=== PATIENT | male | born 1985 | race Caucasian/White ===

== ENCOUNTER 2018-06-04 14:45 | Emergency (ER) | payer SELFPAY ==
[2018-06-04 15:39] LABS: ABS Basophils 0 10^3/ul (0-0.2); ABS Eosinophils 0.4 10^3/ul (0-0.6); ABS Lymphocytes 1.6 10^3/ul (1.0-4.8); ABS Monocytes 0.4 10^3/ul (0-0.8); ABS Neutrophils 3.2 10^3/ul (1.5-7.7); ABS Nucleated RBC 0 10^3/ul; Hematocrit 42 % (42-52); Hemoglobin 15.1 g/dl (14.0-18.0); Lymphocyte % 27.9 % (25-47); Mean Corpuscular HGB Conc 36 g/dl (31-36); Mean Corpuscular Hemoglobin 32 pg (27-31); Mean Corpuscular Volume 91 fL (80-94); Mean Platelet Volume 7.6 um3 (7.4-10.4); Nucleated Red Blood Cells % 0.2; Platelet Count 251 10^3/ul (150-450); Red Blood Count 4.68 10^6/ul (4.00-5.40); Red Cell Distribution Width 13 % (10.5-15); White Blood Count 5.6 10^3/ul (3.5-10.8)
--- NOTE | 2018-06-04 15:46 | RAD ---
INDICATION: Shortness of breath and chest pain. COMPARISON: Comparison is made with a prior chest x-ray study from May 25, 2011. TECHNIQUE: Dual-energy PA and lateral views of the chest were obtained. FINDINGS: The heart is within normal limits in size. Mediastinal and hilar contours appear within normal limits. The lungs are underinflated and clear. No pleural effusion is seen. IMPRESSION: NO EVIDENCE FOR ACTIVE CARDIOPULMONARY DISEASE.
[2018-06-04 15:59] LABS: EGFR Non-African American 74.4 (>60)
[2018-06-04 18:01] VITALS: BP 144/77
--- NOTE | 2018-06-04 18:02 | ED ---
HPI Chest Pain - HPI Summary HPI Summary: This is scribe Alonzo Gonzalez documenting for attending Isela Gutierrez M.D. Patient is a 33 y/o M w/ c/o chest discomfort onset today around noon. His business dean was present in the room. He states he was eating lunch and experienced a general stomach ache. Patient felt sweaty, dizzy, SOB. He went to his business dean and they came to hospital. 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 However, he states he was sweating throughout the day and had no fluids today. This is first episode of present Sx. He describes chest discomfort as feeling "congested" and denies pain. He reports Sx comes in "waves" and he denies Sx presently. However, he also reports some dizziness still. VELOZ is denied. Chest discomfort does not radiate. On triage, nothing is noted to aggravate/alleviate Sx. Patient smokes 1/2 a pack a day. He denies pain while breathing. Temperature in room was 97.7 F. 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 He reports Lyme disease, treated. Patient denies everyday medications, allergies. He reports daily alcohol usage, denies substance use. Father had prostate and colon cancer, denies FMHx of cardiac disease. I, Dr. Gutierrez, personally performed the services described in this documentation as scribed in my presence and it is both accurate and complete. - History of Current Complaint Chief Complaint: EDShortnessOfBreath Time Seen by Provider: 06/04/18 15:39 Hx Obtained From: Patient Onset/Duration: Started Hours Ago - onset today at noon, Resolved - reports chest discomfort not present in the room, but notes some dizziness still present. Timing: Intermittent - intermittent episodes lasting minutes Initial Severity: Moderate Current Severity: None Pain Intensity: 0 Pain Scale Used: 0-10 Numeric - 0/10 Chest Pain Location: Mid Sternal Chest Pain Radiates: No Character: Tightness - described as chest feeling, "congested" Aggravating Factor(s): Nothing Alleviating Factor(s): Nothing Associated Signs and Symptoms: Positive: Dizziness, Shortness of Breath, Diaphoresis, Other: - chest discomfort described as chest feeling "congested" - Risk Factors Pulmonary Embolism Risk Factors: Malignancy - Allergy/Home Medications Allergies/Adverse Reactions: Allergies Allergy/AdvReac Type Severity Reaction Status Date / Time No Known Allergies Allergy Verified 06/04/18 14:51 PMH/Surg Hx/FS Hx/Imm Hx Previously Healthy: No Sensory History: Denies: Hx Legally Blind, Hx Deafness Opthamlomology History: Denies: Hx Legally Blind EENT History: Denies: Hx Deafness - Cancer History Cancer Type, Location and Year: testicular Hx Chemotherapy: No - radiation - Surgical History Surgery Procedure, Year, and Place: orchiectomy-08/2007 Infectious Disease History: No Infectious Disease History: Reports: History Other Infectious Disease - Lyme disease Denies: Traveled Outside the [place] in Last 30 Days - Family History Known Family History: Positive: Other - father had prostate and colon cancer Negative: Cardiac Disease - Social History Occupation: Employed Full-time Alcohol Use: Daily Alcohol Amount: several beers a day Substance Use Type: Reports: None Smoking Status (MU): Heavy Every Day Tobacco Smoker - 1/2 a pack a day Review of Systems Positive: Skin Diaphoresis Positive: Other - chest discomfort described as congestion Positive: Shortness Of Breath Gastrointestinal: Negative Musculoskeletal: Negative Skin: Negative Neurological: Other - dizziness Psychological: Normal All Other Systems Reviewed And Are Negative: Yes Physical Exam - Summary Physical Exam Summary: Appearance: Well-appearing, moderate pain distress, well-nourished Skin: Warm, color reflects adequate perfusion, dry Head: Normal Head/Face inspection, atraumatic Eyes: Conjunctiva clear ENT: Normal inspection Neck: Supple, no nodes, no JVD Respiratory: Lungs clear, normal breath sounds, no respiratory distress Cardio: RRR, No murmur, pulses normal, brisk capillary refill Abdomen: Soft, nontender Bowel sounds: Present Musculoskeletal: Strength Intact/ROM intact, no calf tenderness, no edema. Psychological: Normal Neuro: Alert, muscle tone normal, no focal deficit Triage Information Reviewed: Yes Vital Signs On Initial Exam: Initial Vitals Temp Pulse Resp BP Pulse Ox 97.8 F 85 20 173/89 100 06/04/18 14:47 06/04/18 14:47 06/04/18 14:47 06/04/18 14:47 06/04/18 14:47 Vital Signs Reviewed: Yes Diagnostics - Vital Signs Vital Signs Temp Pulse Resp BP Pulse Ox 06/04/18 17:58 70 17 144/77 98 06/04/18 17:29 68 14 114/71 98 06/04/18 17:00 73 21 97 06/04/18 16:58 71 16 134/75 98 06/04/18 16:28 75 17 131/90 99 06/04/18 16:00 81 15 100 06/04/18 15:58 79 24 160/98 100 06/04/18 15:56 73 99 06/04/18 14:47 97.8 F 85 20 173/89 100 - Laboratory Lab Results: Lab Results 06/04/18 06/04/18 06/04/18 Range/Units 15:30 15:30 15:30 WBC 5.6 (3.5-10.8) 10^3/ul RBC 4.68 (4.00-5.40) 10^6/ul Hgb 15.1 (14.0-18.0) g/dl Hct 42 (42-52) % MCV 91 (80-94) fL MCH 32 H (27-31) pg MCHC 36 (31-36) g/dl RDW 13 (10.5-15) % Plt Count 251 (150-450) 10^3/ul MPV 7.6 (7.4-10.4) um3 Neut % (Auto) 57.4 (38-83) % Lymph % (Auto) 27.9 (25-47) % Luce % (Auto) 6.9 (0-7) % Eos % (Auto) 7.0 H (0-6) % Baso % (Auto) 0.8 (0-2) % Absolute Neuts (auto) 3.2 (1.5-7.7) 10^3/ul Absolute Lymphs (auto) 1.6 (1.0-4.8) 10^3/ul Absolute Monos (auto) 0.4 (0-0.8) 10^3/ul Absolute Eos (auto) 0.4 (0-0.6) 10^3/ul Absolute Basos (auto) 0 (0-0.2) 10^3/ul Absolute Nucleated RBC 0 10^3/ul Nucleated RBC % 0.2 D-Dimer, Quantitative (Less Than 230) ng/mL Sodium 139 (135-145) mmol/L Potassium TNP Chloride 103 (101-111) mmol/L Carbon Dioxide 27 (22-32) mmol/L Anion Gap 9 (2-11) mmol/L BUN 15 (6-24) mg/dL Creatinine 1.14 (0.67-1.17) mg/dL Est GFR ( Amer) 90.1 (>60) Est GFR (Non-Af Amer) 74.4 (>60) BUN/Creatinine Ratio 13.2 (8-20) Glucose 107 H (70-100) mg/dL Lactic Acid 3.0 H* (0.5-2.0) mmol/L Calcium 9.4 (8.6-10.3) mg/dL Total Bilirubin 0.40 (0.2-1.0) mg/dL AST TNP ALT 30 (7-52) U/L Alkaline Phosphatase 71 (34-104) U/L Total Creatine Kinase 96 (10-223) U/L CK-MB (CK-2) 2.1 (0.6-6.3) ng/mL Troponin I 0.00 (<0.04) ng/mL Total Protein 6.8 (6.4-8.9) g/dL Albumin 4.2 (3.2-5.2) g/dL Globulin 2.6 (2-4) g/dL Albumin/Globulin Ratio 1.6 (1-3) / Range/Units 15:30 WBC (3.5-10.8) 10^3/ul RBC (4.00-5.40) 10^6/ul Hgb (14.0-18.0) g/dl Hct (42-52) % MCV (80-94) fL MCH (27-31) pg MCHC (31-36) g/dl RDW (10.5-15) % Plt Count (150-450) 10^3/ul MPV (7.4-10.4) um3 Neut % (Auto) (38-83) % Lymph % (Auto) (25-47) % Luce % (Auto) (0-7) % Eos % (Auto) (0-6) % Baso % (Auto) (0-2) % Absolute Neuts (auto) (1.5-7.7) 10^3/ul Absolute Lymphs (auto) (1.0-4.8) 10^3/ul Absolute Monos (auto) (0-0.8) 10^3/ul Absolute Eos (auto) (0-0.6) 10^3/ul Absolute Basos (auto) (0-0.2) 10^3/ul Absolute Nucleated RBC 10^3/ul Nucleated RBC % D-Dimer, Quantitative < 200 (Less Than 230) ng/mL Sodium (135-145) mmol/L Potassium Chloride (101-111) mmol/L Carbon Dioxide (22-32) mmol/L Anion Gap (2-11) mmol/L BUN (6-24) mg/dL Creatinine (0.67-1.17) mg/dL Est GFR ( Amer) (>60) Est GFR (Non-Af Amer) (>60) BUN/Creatinine Ratio (8-20) Glucose (70-100) mg/dL Lactic Acid (0.5-2.0) mmol/L Calcium (8.6-10.3) mg/dL Total Bilirubin (0.2-1.0) mg/dL AST ALT (7-52) U/L Alkaline Phosphatase (34-104) U/L Total Creatine Kinase (10-223) U/L CK-MB (CK-2) (0.6-6.3) ng/mL Troponin I (<0.04) ng/mL Total Protein (6.4-8.9) g/dL Albumin (3.2-5.2) g/dL Globulin (2-4) g/dL Albumin/Globulin Ratio (1-3) Result Diagrams: 06/04/18 15:30 06/04/18 16:48 Lab Statement: Any lab studies that have been ordered have been reviewed, and results considered in the medical decision making process. - Radiology CXR Xray Interpretation: No Acute Changes Radiology Interpretation Completed By: Radiologist - No evidence for active cardiopulmonary disease. This report was reviewed by ED physician. - EKG 1453 Cardiac Rate: NL - rate of 77 BPM EKG Rhythm: Sinus Rhythm ST Segment: Non-Specific Ectopy: None EKG Comparison: Other - no prior to compare; present EKG shows nl AVCT, prolonged IVCT (116) in incomplete RBBB pattern; axis 77, no acute changes Re-Evaluation - Re-Evaluation First Eval Re-Evaluation Time: 16:02 Comment: Lactate was 3.0 Second Eval Re-Evaluation Time: 17:54 Comment: BP was 114/71, pulse 82, 98.3 F was temp. He drank 2 28 ounces of gatorade as well. Patient reports feeling better. He is capable of ambulating to bathroom and feels ready for discharge. Chest Pain Course/Dx - Course Course Of Treatment: 33 yo M with hx testicular CA and Lyme disease presents to ED by private car c/o chest "congestion", "tightness", SOB, dizziness. EKG shows sinus rhythm, incomplete RBBB. CXR shows NAD. Labs show troponin zero x 2 , d dimer neg, normal CK. Lactic acid was 3.0. Pt drank 2 x 28 oz gatorades while in the ED and felt much better. Pt is discharged with dx chest discomfort , dehydration. - Chest Pain Differential Diagnosis/HQI/PQRI: Acute AR, ACS, Lower Respiratory Infection, Pulmonary Embolism - Diagnoses Provider Diagnoses: Chest discomfort, Elevated lactic acid level, Dehydration Discharge - Sign-Out/Discharge Documenting (check all that apply): Patient Departure - discharge - Discharge Plan Condition: Stable Disposition: HOME Patient Education Materials: Dehydration (ED) Referrals: Shin Escalera MD [Primary Care Provider] - 2 Days Additional Instructions: Your labs tests and xray did not show any critical results to indicate a problem with you heart or lungs. Your lactic acid level was elevated, and that could be from dehydration. You were able to eat and drink in the ER so we feel that it is safe to discharge you. Dr. Gutierrez recommends that you should take off work tomorrow to rest and re-hydrate. Return to the ER if you have any new or worsening symptoms. Have follow up with Dr Escalera in the new 2-3 days. - Billing Disposition and Condition Condition: STABLE Disposition: Home
[2018-06-04 18:47] LABS: Urine Appearance Clear; Urine Blood Negative (Negative); Urine Color Yellow; Urine Ketones Negative (Negative); Urine Protein Negative (Negative); Urine Specific Gravity 1.019 (1.010-1.030); Urine Urobilinogen Negative (Negative)
== END 2018-06-04 18:36 | disposition home or self-care (01) ==
LOC: ED 14:45
DX: R07.89 Other chest pain (principal); E86.0 Dehydration; R74.0 Nonspecific elevation of levels of transaminase and lactic acid dehydrogenase [LDH]; I45.10 Unspecified right bundle-branch block; F17.200 Nicotine dependence, unspecified, uncomplicated; Z85.47 Personal history of malignant neoplasm of testis; Z86.19 Personal history of other infectious and parasitic diseases; Z80.42 Family history of malignant neoplasm of prostate; Z80.0 Family history of malignant neoplasm of digestive organs
CPT/HCPCS: 36415; 71046; 80053; 81003; 82550; 82553; 83605; 84484; 85025; 85379; 93005; 99282

== ENCOUNTER → 2019-04-01 14:16 | Emergency (ER) | payer SELFPAY ==
[2019-04-01 14:23] VITALS: BP 141/88
== END | disposition left against medical advice (07) ==
LOC: ED 14:16
DX: R00.0 Tachycardia, unspecified (principal); R42 Dizziness and giddiness; Z53.21 Procedure and treatment not carried out due to patient leaving prior to being seen by health care provider
CPT/HCPCS: 93005